=== PATIENT | female | born 1955 | race Caucasian/White ===

== ENCOUNTER 2017-05-05 17:17 | Emergency (ER) | payer BC ==
--- NOTE | 2017-05-05 19:19 | ER Document Report ---
ED General - General Chief Complaint: Neck and Upper Back Pain Stated Complaint: NECK PAIN Time Seen by Provider: 05/05/17 19:17 Mode of Arrival: Ambulatory Notes: Patient is a 62 year old female who presents with right sided neck pain that started today when she woke up. Pain worse with rotation of her neck. She states it has progressively worsened throughout the day. She does endorse associated URI symptoms which have been present for the past 2 days and she was seen by her primary care doctor and started on augmentin today. She has only had one dose. She denies any fever, chills, drooling, difficulty swallowing, sore throat, headache, chest pain, cough, n/v/d, dizziness, or radiculopathy symptoms. She is not on any anti-coagulants. TRAVEL OUTSIDE OF THE [place] IN LAST 30 DAYS: No - Related Data Allergies/Adverse Reactions: coconut Allergy (Verified 05/05/17 17:19) Past Medical History - General Information source: Patient - Social History Smoking Status: Never Smoker Family History: Reviewed & Not Pertinent Review of Systems - Review of Systems Constitutional: See HPI EENT: No symptoms reported Cardiovascular: No symptoms reported Respiratory: No symptoms reported Gastrointestinal: No symptoms reported Genitourinary: No symptoms reported Female Genitourinary: No symptoms reported Musculoskeletal: See HPI Skin: No symptoms reported Hematologic/Lymphatic: No symptoms reported Neurological/Psychological: See HPI Physical Exam - Vital signs Vitals: Temp Pulse Resp BP Pulse Ox 99.2 F 77 22 H 138/79 H 99 05/05/17 17:22 05/05/17 17:22 05/05/17 17:22 05/05/17 17:22 05/05/17 17:22 - Notes Notes: PHYSICAL EXAM: CONSTITUTIONAL: Alert and oriented, well-appearing and in no acute distress. HENT: Normocephalic, atraumatic. Ear canals without erythema or foreign body, TMs pearly south with good bony landmarks. Nares clear without erythema, septal hematoma or deviation, airway patent. Oropharynx clear without erythema, tonsilar exudate or malocclusion. Trachea midline. Uvula midline. Moist mucous membranes. EYES: Pupils equal round and reactive to light, EOM intact. Sclera anicteric, conjunctiva are normal. No entrapment. NECK: supple without lymphadenopathy. No midline tenderness,step-offs or deformities. No step-offs or deformities. ROM limited in rotation 2/2 pain. Significant TTP with muscle spasms to trapezius and SCM on left side. HEART: Regular rate and rhythm without murmurs. LUNGS: CTAB and equal. No wheezes, rales or rhonchi. BACK: nontender, no paraspinous spasm, 5+/5 strengths, DTRs 2+, SLR -. EXTREMITIES: Normal range of motion, no pitting edema. No cyanosis. Cap Refill < 3 seconds. NEURO: Cranial nerves grossly intact. Normal sensory/motor exams. PSYCH: Normal mood, normal affect. SKIN: Warm and dry. Normal turgor. No rashes or lesions noted. Course - Re-evaluation Re-evalutation: 05/05/17 19:40 Patient seen and examined. Appears uncomfortable, but hemodynamically stable. Speaking in full sentences without difficulty. Given PO valium for spasm and will continue to monitor. 05/05/17 20:48 Reassessed patient - states she has had no relief with the valium. Will order CT cervical spine and give IM medications. 05/05/17 21:17 Signed out patient due to end of shift to Maryan Sloan NP. Discussed case, current management, all pending lab and imaging studies as well as medications pending. she will complete disposition. - Vital Signs Vital signs: Temp Pulse Resp BP Pulse Ox 99.2 F 77 22 H 138/79 H 99 05/05/17 17:22 05/05/17 17:22 05/05/17 17:22 05/05/17 17:22 05/05/17 17:22 - EKG Interpretation by [facility] EKG shows normal: abnormal: Sinus rhythm Discharge - Discharge Clinical Impression: Torticollis, acute Condition: Stable Disposition: HOME, SELF-CARE Referrals: NIK BECK, YACHT RIGGER-C [Primary Care Provider] - Follow up as needed
[2017-05-05] MEDS ORDERED: DIAZEPAM 5 MG TABLET PO ONE (19:47)
[2017-05-05] MEDS ORDERED: KETOROLAC TROMETHAMINE 60 MG/2 ML SDV IM ONE (20:43)
[2017-05-05] MEDS ORDERED: CYCLOBENZAPRINE HCL 10 MG TABLET PO ONE (20:43)
[2017-05-05] MEDS ORDERED: MORPHINE SULFATE 10 MG/ML INJ IM ONE (20:44)
[2017-05-05] MEDS ORDERED: DIPHENHYDRAMINE HCL 50 MG/ML VIAL ONE (21:35)
[2017-05-05] MEDS ORDERED: DIPHENHYDRAMINE HCL 50 MG/ML VIAL IM ONE (21:46)
--- NOTE | 2017-05-06 00:27 | RADIOLOGY REPORT (SQ) ---
EXAM DESCRIPTION: CT CERVICAL SPINE WITHOUT CLINICAL HISTORY: 62 years Female, neck pain with significant muscle spasms COMPARISON: None. TECHNIQUE: No contrast. Coronal and sagittal reformat. This exam was performed according to our departmental dose-optimization program, which includes automated exposure control, adjustment of the mA and/or kV according to patient size and/or use of iterative reconstruction technique. FINDINGS: No evidence of fracture. 0.2 cm C3 anterolisthesis, small C3-C4 disc bulge, mild disc desiccation at the C6-C7 level and moderate atlantoaxial osteoarthritis. Mild cervicothoracic levo convexity. Unenhanced nuchal soft tissues, inferior cranium, and upper thorax appear otherwise grossly intact. IMPRESSION: No acute findings.
[2017-05-06 00:51] VITALS: BP 124/57
--- NOTE | 2017-05-06 10:35 | EKG REPORT ---
SEVERITY:- NORMAL ECG - SINUS RHYTHM : Confirmed by: Rodger López 06-May-2017 10:34:44
== END 2017-05-06 01:00 | disposition home or self-care (01) ==
LOC: ER 17:17
DX: M43.6 Torticollis (principal); R06.02 Shortness of breath; R07.9 Chest pain, unspecified
CPT/HCPCS: 93005; 99284; 96372; 72125; 93010; J1200; J1885; J2270

== ENCOUNTER 2017-12-06 17:11 | Emergency (ER) | payer BC ==
[2017-12-06] MEDS ORDERED: ALTEPLASE INJ 100 MG VIAL IV ONE (17:20)
[2017-12-06] MEDS ORDERED: ALTEPLASE INJ 100 MG VIAL ONE (17:29)
--- NOTE | 2017-12-06 17:35 | RADIOLOGY REPORT (SQ) ---
EXAM DESCRIPTION: CHEST SINGLE VIEW COMPLETED DATE/TIME: 12/06/2017 5:23 pm REASON FOR STUDY: ACUTE STROKE COMPARISON: None. EXAM PARAMETERS: NUMBER OF VIEWS: One view. TECHNIQUE: Single frontal radiographic view of the chest acquired. RADIATION DOSE: NA LIMITATIONS: None. FINDINGS: LUNGS AND PLEURA: No opacities, masses or pneumothorax. No pleural effusion. MEDIASTINUM AND HILAR STRUCTURES: No masses. Contour normal. HEART AND VASCULAR STRUCTURES: Heart normal in size. Normal vasculature. BONES: No acute findings. HARDWARE: None in the chest. OTHER: No other significant finding. IMPRESSION: NO ACUTE RADIOGRAPHIC FINDING IN THE CHEST. TECHNICAL DOCUMENTATION: JOB ID: [id number] [place]-72 2010 [employer]- All Rights Reserved Reading location - IP/workstation name: [email or web address]
--- NOTE | 2017-12-06 17:39 | RADIOLOGY REPORT (SQ) ---
EXAM DESCRIPTION: CT HEAD WITHOUT COMPLETED DATE/TIME: 12/06/2017 5:23 pm REASON FOR STUDY: ACUTE STROKE COMPARISON: None. TECHNIQUE: Axial images acquired through the brain without intravenous contrast. Images reviewed wi th bone, brain and subdural windows. Images stored on PACS. All CT scanners at this facility use dose modulation, iterative reconstruction, and/or weight based d osing when appropriate to reduce radiation dose to as low as reasonably achievable (ALARA). [facility]: Dose Right [facility]: CareDose [facility]: Dose Right [facility]: Teradose 4D [facility]: TE2 RADIATION DOSE: mGy. LIMITATIONS: None. FINDINGS: VENTRICLES: Normal size and contour. CEREBRUM: No masses. No hemorrhage. No midline shift. No evidence for acute infarction. Normal gra y/white matter differentiation. No areas of low density in the white matter. CEREBELLUM: No masses. No hemorrhage. No alteration of density. No evidence for acute infarction. EXTRAAXIAL SPACES: No fluid collections. No masses. ORBITS AND GLOBE: No intra- or extraconal masses. Normal contour of globe without masses. CALVARIUM: No fracture. PARANASAL SINUSES: No fluid or mucosal thickening. SOFT TISSUES: No mass or hematoma. OTHER: No other significant finding. IMPRESSION: No acute intracranial findings. EVIDENCE OF ACUTE STROKE: NO. COMMENT: Results called to the emergency room physician at 1732 hours. Quality ID # 436: Final reports with documentation of one or more dose reduction techniques (e.g., Au tomated exposure control, adjustment of the mA and/or kV according to patient size, use of iterative reconstruction technique) TECHNICAL DOCUMENTATION: JOB ID: [id number] [place]-72 2010 [employer]- All Rights Reserved Reading location - IP/workstation name: [email or web address]
--- NOTE | 2017-12-06 18:04 | ER Document Report ---
ED General - General Chief Complaint: Altered Mental Status Stated Complaint: POSSIBLE STROKE Time Seen by Provider: 12/06/17 17:17 Mode of Arrival: Medic Information source: Relative, Emergency Med Personnel Cannot obtain history due to: Altered mental status Notes: I met this patient at the ambulance bay door on arrival to the ER and helped escort her to the CT scan during which I began my NIH scoring process. This is a 62-year-old female with a history of hypertension and a remote history of a stroke in the past (a fascia with some right-sided weakness at that time, with resolution of symptoms). The patient was brought in by EMS for acute strokelike symptoms. The patient's states that 30 minutes prior to EMS arrival (approximately 16:20), the patient seemed to develop right-sided weakness and start repeating words over and over again. EMS arrived at the scene and found patient to be confused and repeating words with right-sided weakness. Her blood pressure in the field was 192/92. Her Accu-Chek in the field was 121. TRAVEL OUTSIDE OF THE [place] IN LAST 30 DAYS: No - HPI Onset: Just prior to arrival Onset/Duration: Sudden Quality of pain: No pain Severity: None Pain Level: Denies Associated symptoms: denies: Chest pain, Fever, Shortness of breath Exacerbated by: Denies Relieved by: Denies Similar symptoms previously: No Recently seen / treated by doctor: No - Related Data Allergies/Adverse Reactions: coconut Allergy (Verified 05/05/17 17:19) Past Medical History - General Information source: Relative - Social History Smoking Status: Never Smoker Cigarette use (# per day): No Chew tobacco use (# tins/day): No Frequency of alcohol use: None Drug Abuse: None Lives with: Family Family History: Reviewed & Not Pertinent Patient has suicidal ideation: No Patient has homicidal ideation: No - Past Medical History Cardiac Medical History: Reports: Hx Hypercholesterolemia, Hx Hypertension Pulmonary Medical History: Reports: None EENT Medical History: Reports: None Neurological Medical History: Reports: Other - CVA in the past Endocrine Medical History: Reports: None Renal/ Medical History: Reports: None. Denies: Hx Peritoneal Dialysis Malignancy Medical History: Reports: None GI Medical History: Reports: None Musculoskeletal Medical History: Reports None Skin Medical History: Reports None Psychiatric Medical History: Reports: None Traumatic Medical History: Reports: None Infectious Medical History: Reports: None Surgical Hx: Other - unKnown Review of Systems - Review of Systems Constitutional: denies: Chills, Fever EENT: No symptoms reported Cardiovascular: No symptoms reported Respiratory: No symptoms reported Gastrointestinal: No symptoms reported Genitourinary: No symptoms reported Female Genitourinary: No symptoms reported Musculoskeletal: No symptoms reported Skin: No symptoms reported Hematologic/Lymphatic: No symptoms reported Neurological/Psychological: See HPI Physical Exam - Vital signs Vitals: Resp 16 12/06/17 17:21 Notes: Physical exam: GENERAL: This is a 62-year-old woman repeating her words ("I am mama"). Accu- Chek 100. Blood pressure 158/98, repeat blood pressure 155/92 HEAD: Atraumatic, normocephalic. EYES: Pupils equal round and reactive to light, extraocular movements intact, sclera anicteric, conjunctiva are normal. ENT: oropharynx clear without exudates. Moist mucous membranes. NECK: Supple without obvious mass or JVD. LUNGS: Breath sounds clear to auscultation bilaterally and equal. No wheezes rales or rhonchi. HEART: Regular rate and rhythm without murmurs, rubs or gallops. ABDOMEN: Soft, normoactive bowel sounds. No tenderness to palpation. No guarding, no rebound. No masses appreciated. EXTREMITIES: Normal range of motion, no pitting or edema. No clubbing or cyanosis. NEUROLOGICAL: This is a 62-year-old female who is repeating words and appears to have right sided weakness. She is alert and she is responsive (0), she is able to open and close okay PSYCH: Normal mood, normal affect. SKIN: Warm, Dry, normal turgor, no rashes or lesions noted. Course - Re-evaluation Re-evalutation: 12/06/17 18:22 Note: After multiple conversations with EMS and the patient's , the patient acutely changed at approximately 1620. While she was somewhat hypertensive in the field, her blood pressure was acceptable for TPA. I had an in-depth discussion with the patient's about the risks of bleeding and the benefits of thrombolytics and stroke and he agreed with thrombolytics and thrombolytics were initiated. I discussed the case with Dr. Reinoso at [facility] who will accept the patient in transport. Since last blood pressure was 154/86. She does not appear to have any change in her aphasia at this time. I have notified the family on transport and they are comfortable with transport. 12/06/17 19:04 TPA complete. Repeat NIH is 8+. Patient seems to have some improvement in the right lower extremity weakness. She has improved in her ability to commands ( closing eyes, making fist). She still has a significant aphasia. - Vital Signs Vital signs: Temp Pulse Resp BP Pulse Ox 98.1 F 77 29 H 144/79 H 96 12/06/17 18:31 12/06/17 18:38 12/06/17 19:01 12/06/17 19:01 12/06/17 19:01 - Laboratory Result Diagrams: 12/06/17 17:25 12/06/17 17:25 Laboratory results interpreted by me: 12/06/17 12/06/17 17:25 17:25 WBC 11.1 H BUN 24 H Creatinine 1.33 H Est GFR ( Amer) 49 L Est GFR (Non-Af Amer) 40 L AST 60 H ALT 60 H Total Protein 8.5 H - Diagnostic Test Radiology reviewed: Image reviewed, Reports reviewed - CT of the head shows no acute bleed. Chest x-ray shows no infiltrates. - EKG Interpretation by Me Rate: Normal Rhythm: NSR - EKG shows normal sinus rhythm with a ventricular rate of 79, no acute ST-T wave changes. Critical Care Note - Critical Care Note Total time excluding time spent on procedures (mins): 60 Discharge - Discharge Clinical Impression: Acute stroke Condition: Stable Disposition: [facility] Referrals: NIK BECK, REGISTERED NURSE [facility] [COMMUNITY BASED STAFF] - Follow up as needed
[2017-12-06 18:53] LABS: ABSOLUTE BASOPHILS # (AUTO) 0.1 10^3/uL (0.0-0.2); ABSOLUTE EOSINOPHILS # (AUTO) 0.2 10^3/uL (0.0-0.6); ABSOLUTE LYMPHOCYTES (AUTO) 2.4 10^3/uL (0.5-4.7); ABSOLUTE MONOCYTES (AUTO) 0.8 10^3/uL (0.1-1.4); ABSOLUTE NEUT (AUTO) 7.7 10^3/uL (1.7-8.2); BASOPHILS % (AUTO) 0.6 % (0-2); EOSINOPHILS % (AUTO) 1.7 % (0-6); HEMOGLOBIN 15.2 g/dL (12.0-15.5); LYMPHOCYTES % (AUTO) 21.3 % (13-45); MEAN CORPUSCULAR HEMOGLOBIN 29.7 pg (27.0-33.4); MEAN CORPUSCULAR HGB CONC 34.5 g/dL (32.0-36.0); MEAN CORPUSCULAR VOLUME 86 fl (80-97); MONOCYTES % (AUTO) 6.9 % (3-13); PLATELET COUNT 324 10^3/uL (150-450); RED BLOOD COUNT 5.11 10^6/uL (3.72-5.28); RED CELL DISTRIBUTION WIDTH 12.7 % (11.5-14.0); SEGMENTED NEUTROPHILS % (AUTO) 69.5 % (42-78); TOTAL CELLS COUNTED % (AUTO) 100 %; WHITE BLOOD COUNT 11.1 10^3/uL (4.0-10.5)
[2017-12-06 18:55] LABS: INTERNATIONAL RATION (INR) 0.94; PROTHROMBIN TIME 13.1 SEC (11.4-15.4)
[2017-12-06 18:56] LABS: PARTIAL THROMBOPLASTIN TIME 32.6 SEC (23.5-35.8)
[2017-12-06 19:01] LABS: ALANINE AMINOTRANSFERASE 60 U/L (9-52); ALBUMIN 4.8 g/dL (3.5-5.0); ALKALINE PHOSPHATASE 94 U/L (38-126); ANION GAP 13 (5-19); ASPARTATE AMINO TRANSFERASE 60 U/L (14-36); BILIRUBIN,DIRECT 0.4 mg/dL (0.0-0.4); BILIRUBIN,TOTAL 1.3 mg/dL (0.2-1.3); BLOOD UREA NITROGEN 24 mg/dL (7-20); CALCIUM 9.9 mg/dL (8.4-10.2); CARBON DIOXIDE 24 mmol/L (22-30); CHLORIDE 103 mmol/L (98-107); CREATINE KINASE 70 U/L (30-135); GLUCOSE 98 mg/dL (75-110); POTASSIUM 4.4 mmol/L (3.6-5.0); SODIUM 140.3 mmol/L (137-145); TOTAL PROTEIN 8.5 g/dL (6.3-8.2)
[2017-12-06] MEDS ORDERED: NORMAL SALINE 500 ML IV ONE (19:06)
[2017-12-06 19:13] LABS: CREATINE KINASE MB 0.61 ng/mL (<4.55)
[2017-12-06 19:14] LABS: TROPONIN I < 0.012 ng/mL
[2017-12-06 19:29] VITALS: BP 144/79
--- NOTE | 2017-12-06 23:52 | EKG REPORT ---
SEVERITY:- NORMAL ECG - SINUS RHYTHM : Confirmed by: Rodger López 06-Dec-2017 23:51:48
== END 2017-12-06 19:10 | disposition short-term general hospital (02) ==
LOC: ER 17:11
DX: I63.9 Cerebral infarction, unspecified (principal); R29.708 NIHSS score 8; R47.01 Aphasia; G83.11 Monoplegia of lower limb affecting right dominant side; I10 Essential (primary) hypertension; Z91.018 Allergy to other foods
CPT/HCPCS: 93005; 99291; 96365; 36415; 82553; 82962; 82550; 85025; 85610; 85730; 80053; 84484; 71045; 70450; 93010; J2997

== ENCOUNTER 2018-04-30 20:27 | Emergency (ER) | payer SELFPAY ==
--- NOTE | 2018-04-30 22:08 | RADIOLOGY REPORT (SQ) ---
EXAM DESCRIPTION: XR RIBS UNILATERAL WITH CHEST COMPLETED DATE/TME: 04/30/2018 00:00 CLINICAL HISTORY: 63 years, Female, fall COMPARISON: 12/06/2017 NUMBER OF VIEWS: Six TECHNIQUE: One PA view of the chest and five views of the left ribs. LIMITATIONS: None. FINDINGS: Cardiac silhouette is within normal limits in size. No lung consolidate. No pleural effusion. No pneumothorax. No left rib fracture identified. IMPRESSION: No acute chest finding. Negative for left rib fracture. copyright 2010 [employer] :[employer]- All Rights Reserved
[2018-04-30 22:19] LABS: APPEARANCE,URINE CLEAR; BILIRUBIN,URINE NEGATIVE (NEGATIVE); COLOR,URINE STRAW; GLUCOSE, URINE NEGATIVE (NEGATIVE); KETONES,URINE NEGATIVE (NEGATIVE); LEUKOCYTE ESTERASE,URINE TRACE (NEGATIVE); NITRITE,URINE NEGATIVE (NEGATIVE); PROTEIN,URINE NEGATIVE (NEGATIVE); UROBILINOGEN,URINE NEGATIVE mg/dL (<2.0)
[2018-04-30] MEDS ORDERED: ONDANSETRON HCL INJ/PF 4 MG/2 ML SDV IV ONE (23:44)
[2018-04-30] MEDS ORDERED: MORPHINE SULFATE 10 MG/ML INJ IV ONE (23:44)
--- NOTE | 2018-04-30 23:49 | ER Document Report ---
ED Medical Screen (RME) - General Chief Complaint: Rib Pain Stated Complaint: FALL Time Seen by Provider: 04/30/18 23:43 Notes: 63-year-old female with chief complaint of fall, she states she fell and landed on her left side and lower ribs on the side of a couch before falling to the floor. She reports severe pain in her left side and left lower ribs. She denies hitting her head, passing out, neck pain, numbness, incontinence. She is on aspirin but no blood thinners otherwise. TRAVEL OUTSIDE OF THE [place] IN LAST 30 DAYS: No - Related Data Allergies/Adverse Reactions: coconut Allergy (Verified 04/30/18 20:35) hydrochlorothiazide [From Diovan HCT] Allergy (Verified 04/30/18 20:35) valsartan [From Diovan HCT] Allergy (Verified 04/30/18 20:35) Past Medical History - Social History Chew tobacco use (# tins/day): No Frequency of alcohol use: None Drug Abuse: None - Past Medical History Cardiac Medical History: Reports: Hx Hypercholesterolemia, Hx Hypertension Renal/ Medical History: Denies: Hx Peritoneal Dialysis GI Medical History: Reports: Hx Gastroesophageal Reflux Disease Psychiatric Medical History: Reports: Hx Depression Past Surgical History: Reports: Hx Cholecystectomy, Hx Genitourinary Surgery - Bladder sling, Hx Hysterectomy Physical Exam - Vital signs Vitals: Temp Pulse Resp BP Pulse Ox 97 F L 74 20 153/67 H 100 04/30/18 20:37 04/30/18 20:37 04/30/18 20:37 04/30/18 20:37 04/30/18 20:37 - Abdominal Tenderness: Tender - Contusions noted over the left lateral side and abdomen with pain extending up to the lower ribs and around to the side of the back Course - Vital Signs Vital signs: Temp Pulse Resp BP Pulse Ox 97 F L 74 20 153/67 H 100 04/30/18 20:37 04/30/18 20:37 04/30/18 20:37 04/30/18 20:37 04/30/18 20:37 - Laboratory Laboratory results interpreted by me: 04/30/18 21:50 Ur Leukocyte Esterase TRACE H Doctor's Discharge - Discharge Referrals: AGATHA GIRON MD [Primary Care Provider] - Follow up as needed
[2018-05-01 00:17] LABS: ABSOLUTE BASOPHILS # (AUTO) 0.1 10^3/uL (0.0-0.2); ABSOLUTE EOSINOPHILS # (AUTO) 0.4 10^3/uL (0.0-0.6); ABSOLUTE LYMPHOCYTES (AUTO) 2.4 10^3/uL (0.5-4.7); ABSOLUTE MONOCYTES (AUTO) 0.8 10^3/uL (0.1-1.4); ABSOLUTE NEUT (AUTO) 6.1 10^3/uL (1.7-8.2); BASOPHILS % (AUTO) 0.7 % (0-2); EOSINOPHILS % (AUTO) 3.9 % (0-6); HEMATOCRIT 40.6 % (36.0-47.0); HEMOGLOBIN 13.9 g/dL (12.0-15.5); LYMPHOCYTES % (AUTO) 24.3 % (13-45); MEAN CORPUSCULAR HEMOGLOBIN 29.6 pg (27.0-33.4); MEAN CORPUSCULAR HGB CONC 34.2 g/dL (32.0-36.0); MEAN CORPUSCULAR VOLUME 87 fl (80-97); MONOCYTES % (AUTO) 8.2 % (3-13); PLATELET COUNT 255 10^3/uL (150-450); RED BLOOD COUNT 4.68 10^6/uL (3.72-5.28); RED CELL DISTRIBUTION WIDTH 12.6 % (11.5-14.0); SEGMENTED NEUTROPHILS % (AUTO) 62.9 % (42-78); TOTAL CELLS COUNTED % (AUTO) 100 %; WHITE BLOOD COUNT 9.7 10^3/uL (4.0-10.5)
[2018-05-01] MEDS ORDERED: FENTANYL CITRATE INJ/PF 100 MCG/2 ML AMPUL IV ONE (00:35)
[2018-05-01 00:36] LABS: ANION GAP 9 (5-19); BLOOD UREA NITROGEN 24 mg/dL (7-20); CALCIUM 10.2 mg/dL (8.4-10.2); CARBON DIOXIDE 25 mmol/L (22-30); CHLORIDE 108 mmol/L (98-107); GLUCOSE 94 mg/dL (75-110); POTASSIUM 4.5 mmol/L (3.6-5.0); SODIUM 141.5 mmol/L (137-145)
[2018-05-01] MEDS ORDERED: HYDROCODONE/ACETAMINOPHEN 5-325 MG (6 TAB/ER DISP) PO PRN (01:23)
[2018-05-01] MEDS ORDERED: ONDANSETRON ODT 4 MG TAB (6 TAB/ER DISP) PO PRN (01:23)
--- NOTE | 2018-05-01 01:32 | ER Document Report ---
ED Fall - General Chief Complaint: Rib Pain Stated Complaint: FALL Time Seen by Provider: 04/30/18 23:43 Notes: Patient is a 63-year-old female that comes to the Emergency Department with chief complaint of fall, she states she tripped and landed on her left side and lower ribs on the side of a couch before falling to the floor. She reports severe pain in her left side and left lower ribs. She denies hitting her head, passing out, neck pain, numbness, incontinence. She is on aspirin but no blood thinners otherwise. TRAVEL OUTSIDE OF THE [place] IN LAST 30 DAYS: No - Related data Allergies/Adverse Reactions: coconut Allergy (Verified 04/30/18 20:35) hydrochlorothiazide [From Diovan HCT] Allergy (Verified 04/30/18 20:35) valsartan [From Diovan HCT] Allergy (Verified 04/30/18 20:35) Past Medical History - General Information source: Patient - Social History Smoking Status: Never Smoker Chew tobacco use (# tins/day): No Frequency of alcohol use: None Drug Abuse: None Lives with: Family Family History: Reviewed & Not Pertinent Patient has suicidal ideation: No Patient has homicidal ideation: No - Past Medical History Cardiac Medical History: Reports: Hx Hypercholesterolemia, Hx Hypertension Renal/ Medical History: Denies: Hx Peritoneal Dialysis GI Medical History: Reports: Hx Gastroesophageal Reflux Disease Psychiatric Medical History: Reports: Hx Depression Past Surgical History: Reports: Hx Cholecystectomy, Hx Genitourinary Surgery - Bladder sling, Hx Hysterectomy - Immunizations Immunizations up to date: Yes Hx Diphtheria, Pertussis, Tetanus Vaccination: Yes Review of Systems - Review of Systems Constitutional: No symptoms reported EENT: No symptoms reported Cardiovascular: No symptoms reported Respiratory: See HPI Gastrointestinal: See HPI Genitourinary: No symptoms reported Female Genitourinary: No symptoms reported Musculoskeletal: See HPI Skin: No symptoms reported Hematologic/Lymphatic: No symptoms reported Neurological/Psychological: No symptoms reported Physical Exam - Vital signs Vitals: Temp Pulse Resp BP Pulse Ox 97 F L 74 20 153/67 H 100 04/30/18 20:37 04/30/18 20:37 04/30/18 20:37 04/30/18 20:37 04/30/18 20:37 - Notes Notes: GENERAL: Tearful, holding her left side, in obvious discomfort HEAD: Normocephalic, atraumatic. EYES: Pupils equal, round, and reactive to light. Extraocular movements intact. ENT: Oral mucosa moist, tongue midline. Oropharynx unremarkable. Airway patent. Nares patent, no nasal septal hematoma, TM's intact. NECK: Full range of motion. Supple. Trachea midline. LUNGS: Clear to auscultation bilaterally, no wheezes, rales, or rhonchi. No respiratory distress. Tender along the left lateral lower ribs at the mid axillary line, no crepitus, no swelling, no ecchymosis. Negative chest otherwise. HEART: Regular rate and rhythm. No murmur ABDOMEN: Tender over the left mid abdomen, there is ecchymosis in this area. Anterior abdomen is unremarkable. GENITOURINARY: Deferred EXTREMITIES: Moves all 4 extremities spontaneously. No edema, normal radial and dorsalis pedis pulses bilaterally. No cyanosis. BACK: Tenderness over the general lower lumbar area, no signs of trauma in this area, no saddle anesthesia, normal range of motion of all extremities, normal d istal neurovascular exam. NEUROLOGICAL: Alert and oriented x3. Normal speech. [cranial nerves II through XII grossly intact]. PSYCH: Normal affect, normal mood. SKIN: Warm, dry, normal turgor. No rashes or lesions noted. Course - Re-evaluation Re-evalutation: Because of patient's fall, obvious pain, ecchymosis on examination labs and CAT scan imaging was performed. Initial x-ray from triage shows negative chest. CBC, chemistry, urinalysis generally unremarkable. CAT scan of the chest, abdomen, pelvis showing no fractures, visceral injury, or concerning acute finding. Patient is much more comfortable after pain medications. She is well- appearing on reevaluation. No neurological deficits on my evaluation. Unremarkable vital signs. Discussed all results with patient in detail. Provided with incentive spirometry, I did provide her with some pain medication and stool softeners, discussed expectations, follow-up, and return precautions. Patient and at bedside state understanding and agreement. - Vital Signs Vital signs: Temp Pulse Resp BP Pulse Ox 98.7 F 79 16 113/59 L 96 05/01/18 01:46 05/01/18 01:46 05/01/18 01:46 05/01/18 01:46 05/01/18 01:46 - Laboratory Result Diagrams: 04/30/18 23:55 04/30/18 23:55 Laboratory results interpreted by me: 04/30/18 04/30/18 21:50 23:55 Chloride 108 H BUN 24 H Est GFR (Non-Af Amer) 51 L Ur Leukocyte Esterase TRACE H Discharge - Discharge Clinical Impression: Rib pain on left side, Contusion of skin Fall Qualifiers: Encounter type: initial encounter Qualified Code(s): W19.XXXA - Unspecified fall, initial encounter Abdominal pain Qualifiers: Abdominal location: generalized Qualified Code(s): R10.84 - Generalized abdominal pain Condition: Stable Disposition: HOME, SELF-CARE Additional Instructions: Your evaluation is consistent with soft tissue injury and bruised ribs. Imaging does not show any fractures or concerning abnormalities. You will be very sore. He will have pain from the bruised ribs for a while. For the first day you can apply ice over the area, afterwards I recommend heat to the area. You can take Tylenol for pain or take the pain medication prescribed if needed, if you do also take a stool softener to avoid worsening constipation. I recommend that you use the incentive spirometry several times a day to avoid getting pneumonia. Return if you worsen including vomiting, difficulty breathing, passing out, or any other concerning or worsening symptoms. Prescriptions: Docusate Sodium [Colace 100 mg Capsule] 100 mg PO ASDIR PRN #30 capsule PRN Reason: Hydrocodone/Acetaminophen [Clayton 5-325 mg Tablet] 1 - 2 tab PO ASDIR #10 tablet Referrals: AGATHA GIRON MD [Primary Care Provider] - Follow up as needed
--- NOTE | 2018-05-01 01:35 | RADIOLOGY REPORT (SQ) ---
EXAM DESCRIPTION: CT CHEST , abdomen and pelvis WITH IV CONTRAST COMPLETED DATE/TME: 04/30/2018 23:44 CLINICAL HISTORY: 63 years, Female, fall, severe left side pain and bruising COMPARISON: None. TECHNIQUE: 471 Images stored on PACS. All CT scanners at this facility use dose modulation, iterative reconstruction, and/or weight based dosing when appropriate to reduce radiation dose to as low as reasonably achievable (ALARA). [facility]: Dose Right [facility]: CareDose [facility]: Dose Right [facility]: Teradose 4D [facility]: [employer] LIMITATIONS: None. FINDINGS: CT chest: The visualized thyroid gland enhances normally. No mediastinal or hilar adenopathy. The heart and pericardium are unremarkable. Small hiatal hernia. Osseous structures of the thorax are grossly intact. No pneumothorax. The visualized airways are patent. The lungs are clear. CT abdomen/pelvis: Osseous structures are grossly intact. The liver, spleen, adrenal glands, pancreas, kidneys are unremarkable. Status post cholecystectomy. Moderate atheromatous changes. No free air or free fluid. Large amount of stool in the colon. IMPRESSION: Negative for acute intrathoracic process. Negative for acute intra-abdominal/pelvic process. Small hiatal hernia. Moderate atheromatous change. Abundant stool in the colon TECHNICAL DOCUMENTATION: Quality ID # [id number]: Final reports with documentation of one or more dose reduction techniques (e.g., Automated exposure control, adjustment of the mA and/or kV according to patient size, use of iterative reconstruction technique) copyright 2010 [employer]- All Rights Reserved
[2018-05-01 01:47] VITALS: BP 113/59
== END 2018-05-01 01:47 | disposition home or self-care (01) ==
LOC: ER 20:27
DX: R07.81 Pleurodynia (principal); W01.190A Fall on same level from slipping, tripping and stumbling with subsequent striking against furniture, initial encounter; R10.84 Generalized abdominal pain; E78.00 Pure hypercholesterolemia, unspecified; I10 Essential (primary) hypertension; Z90.49 Acquired absence of other specified parts of digestive tract; Z90.710 Acquired absence of both cervix and uterus
CPT/HCPCS: 99284; 96374; 96375; 36415; 85025; 80048; 81001; 71101; 71260; 74177; J3010; J2270; J2405